=== PATIENT | female | born 1985 | race Caucasian/White ===

== ENCOUNTER 2020-01-09 20:10 | Emergency (ER) | payer MEDICARE, MEDICAID, SELFPAY ==
[2020-01-09 20:20] VITALS: TEMP 38.8
[2020-01-09 20:26] VITALS: BP 188/116; PULSE 112; RESP 20; O2SAT 97
--- NOTE | 2020-01-09 20:27 | ED.FEVER ---
HPI - Fever General Chief Complaint: Fever Stated Complaint: fever, shivers, sore throat, headache Time Seen by Provider: 01/09/20 20:14 Source: patient Mode of arrival: ambulatory Limitations: no limitations History of Present Illness HPI Narrative: 34-year-old woman history hypertension comes in today complaining of fever, sore throat, headache and chills that have been present for the last 2 days. Patient states that she has no cough, shortness breath, vomiting, diarrhea or abdominal pain. She denies any sick exposures. Patient states he has a history hypertension but has not been able to get to her doctor's office to refill her medication lately. MD elicited complaint: fever Onset (ago): day(s) Exacerbating factors: nothing Relieving factors: nothing Associated symptoms: chills, headache and sore throat Treatments prior to arrival fever: none Related Data Allergies Allergy/AdvReac Type Severity Reaction Status Date / Time No Known Allergies Allergy Unverified 10/21/13 17:48 Review of Systems Constitutional: Constitutional: Reports chills and Reports fever(s) Eyes: Eyes: Denies change in vision and Denies photophobia ENT: Denies dysphagia, Denies nasal congestion and Denies sore throat Cardiovascular: Cardiovascular: Reports chest pain and Reports radiating jaw, neck or arm pain Respiratory: Respiratory: Denies cough, Denies dyspnea and Denies wheezing Gastrointestinal: Gastrointestinal: Denies abdominal pain, Denies diarrhea, Denies nausea and Denies vomiting Integumentary/Breasts: Skin/Breast: Denies pruritus, Denies erythema and Denies rash Neurologic: Denies vertigo, Denies dizziness, Denies syncope and Denies focal weakness Hematologic/Lymphatic: Hematologic/Lymphatic: Denies easy bleeding and Denies easy bruising Allergic/Immunologic: Allergic/Immunologic: Denies lip swelling and Denies wheezing PMFSH Past Medical History Medical History Hypertension Surgical History Surgical History History of Social History Social History Smoking status: Former smoker Alcohol intake: current Substance use: never Living arrangements: with family Gender identity (if verbalized by the patient): Female Exam Const: General: healthy appearing, no acute distress and alert Orientation/consciousness: patient oriented x3 Limitations: no limitations HENMT: Head: normal to inspection Ears: external ears normal, TM's normal bilaterally and EAC's normal Other: Bilateral tonsillar hypertrophy 3+ with white exudate. Eyes: Conjunctivae: conjunctivae normal Pupils: Equal, round and reactive pupils present EOM: EOMs intact bilaterally Neck: Neck: normal visual inspection and no lymphadenopathy Resp: Effort & Inspection: normal respiratory effort and not labored Auscultation: clear to auscultation bilaterally, no rales, no rhonchi and no wheezes Cardio: Rate: regular rate Rhythm: regular rhythm Heart sounds: no murmurs Peripheral pulses: Peripheral pulses 2+ throughout Skin: General skin exam: normal color, no jaundice and no pallor Rashes: no rashes Neuro: General: patient oriented x3, moves all extremities, no focal motor deficits and CN's II-XI intact bilaterally Cranial nerves: Yes Nystagmus not present Speech: normal speech Gait exam (Neuro): Normal gait present Extrem: General: normal to inspection and no clubbing, cyanosis or edema Psych: Appearance: grossly normal and well kempt Mental Status: mental status grossly normal Affect: normal affect Attitude: cooperative Thought content: Yes Normal thought content present Course Vital Signs Vital signs: Vital Signs Temperature 38.8 C H 01/09/20 20:20 Temperature 38.8 C H 01/09/20 20:20 Pulse Rate 112 H 01/09/20 20:26 Respiratory Rate 20 01/09/20 20:
--- NOTE | 2020-01-09 20:33 | ECG_ITS ---
Measurements Intervals [place] Rate: 110 P: 62 [place]: 134 QRS: 94 QRSD: 98 T: 16 QT: 309 QTc: 419 Interpretive Statements SINUS TACHYCARDIA RIGHT AXIS DEVIATION BASELINE ARTIFACT- I, II, III, AVF, V3-V6 ABNORMAL ECG Electronically Signed On 01-10-2020 6:56:27 CDT by Mahad Russell D.O.
[2020-01-09 20:50] LABS: Basophils Absolute Auto 0.05 K/mm3 (0.00-0.10); Basophils Percent Auto 0.4 % (0.0-1.0); Eosinophils Absolute Auto 0.07 K/mm3 (0.02-0.50); Eosinophils Percent Auto 0.5 % (1.0-6.0); Hematocrit 38.2 % (35.0-49.0); Hemoglobin 12.7 g/dL (12.0-15.0); Immature Granulocyte Absolute 0.07 K/mm3 (0.00-0.00); Immature Granulocyte Percent A 0.5 % (0.0-0.0); Lymphocytes Absolute Auto 1.28 K/mm3 (1.10-4.50); Lymphocytes Percent Auto 9.1 % (18.0-42.0); Mean Corpuscular HGB Conc 33.2 g/dL (32.0-36.0); Mean Corpuscular Hemoglobin 32.6 pg (27.0-31.0); Mean Corpuscular Volume 97.9 fL (78.0-102.0); Monocytes Absolute Auto 0.69 K/mm3 (0.10-0.90); Monocytes Percent Auto 4.9 % (2.0-11.0); Neutrophils Absolute Auto 11.9 K/mm3 (1.7-7.2); Neutrophils Percent Auto 84.6 % (50.0-70.0); Platelet Count Result 240 K/mm3 (150-420); Red Cell Distribution Width 12.7 % (11.6-14.4); White Blood Count 14.1 K/mm3 (4.8-10.8)
[2020-01-09 21:08] LABS: Alanine Aminotransferase 28 U/L (14-59); Albumin Level 3.3 g/dL (3.4-5.0); Alkaline Phosphatase 69 U/L (46-116); Anion Gap 14.2 mmol/L (7-16); Aspartate Amino Transferase 28 U/L (15-37); Bilirubin,Total 0.3 mg/dL (0.00-1.00); Blood Urea Nitrogen 7 mg/dL (7-18); Calcium 8.8 mg/dL (8.5-10.1); Carbon Dioxide 25 mmol/L (21-32); Chloride 100 mmol/L (98-108); Estimated Glomerular Filt Rate > 60; Glucose 125 mg/dL (70-99); Osmolality Calculated 281 mOsm/kg (285-295); Potassium 3.2 mmol/L (3.5-5.1); Sodium 136 mmol/L (136-145); Total Protein 7.5 g/dL (6.4-8.2); Troponin I < 0.02 ng/mL (0.00-0.056)
[2020-01-09 21:14] VITALS: BP 150/92; PULSE 100; RESP 18; O2SAT 100
[2020-01-09] MEDS: IBUPROFEN 600 MG TABLET PO (21:29)
[2020-01-09] MEDS: AMOXICILLIN 500 MG CAPSULE 1000 MG PO (21:34)
[2020-01-09 21:37] VITALS: BP 149/92; PULSE 99; RESP 18; O2SAT 100
== END 2020-01-09 21:45 | disposition home or self-care (01) ==
PROVIDERS: Emergency Provider Emergency Medicine
DX: J02.0 Streptococcal pharyngitis (principal); I10 Essential (primary) hypertension
CPT/HCPCS: 80053; 84484; 85025; 87880; 93005; 99283; 99284; A9270

== ENCOUNTER 2020-01-31 17:20 | Outpatient (CLI) | payer MEDICARE, MEDICAID, SELFPAY ==
[2020-01-31 17:38] LABS: Basophils Absolute Auto 0.05 K/mm3 (0.00-0.10); Basophils Percent Auto 0.5 % (0.0-1.0); Eosinophils Absolute Auto 0.12 K/mm3 (0.02-0.50); Eosinophils Percent Auto 1.3 % (1.0-6.0); Hematocrit 38.9 % (35.0-49.0); Hemoglobin 12.8 g/dL (12.0-15.0); Immature Granulocyte Absolute 0.03 K/mm3 (0.00-0.00); Immature Granulocyte Percent A 0.3 % (0.0-0.0); Lymphocytes Percent Auto 22.4 % (18.0-42.0); Mean Corpuscular HGB Conc 32.9 g/dL (32.0-36.0); Mean Corpuscular Hemoglobin 32.7 pg (27.0-31.0); Mean Corpuscular Volume 99.5 fL (78.0-102.0); Mean Platelet Volume 10.4 fl (9.2-11.8); Monocytes Absolute Auto 0.56 K/mm3 (0.10-0.90); Neutrophils Absolute Auto 6.5 K/mm3 (1.7-7.2); Neutrophils Percent Auto 69.5 % (50.0-70.0); Platelet Count Result 306 K/mm3 (150-420); Red Blood Count 3.91 M/mm3 (4.20-5.40); White Blood Count 9.4 K/mm3 (4.8-10.8)
[2020-01-31 18:02] LABS: Alanine Aminotransferase 34 U/L (14-59); Albumin Level 3.6 g/dL (3.4-5.0); Alkaline Phosphatase 61 U/L (46-116); Anion Gap 8 mmol/L (8-16); Aspartate Amino Transferase 35 U/L (15-37); Bilirubin,Total 0.3 mg/dL (0.00-1.00); Blood Urea Nitrogen 11 mg/dL (7-18); Calcium 8.9 mg/dL (8.5-10.1); Carbon Dioxide 27 mmol/L (21-32); Chloride 101 mmol/L (98-108); Cholesterol 204 mg/dL (0-200); Estimated Glomerular Filt Rate > 60; Glucose 99 mg/dL (70-99); HDL Direct 56 mg/dL (40-60); LDL Cholesterol Calculated 78 mg/dL (<130); Osmolality Calculated 281 mOsm/kg (285-295); Potassium 4.2 mmol/L (3.5-5.1); Sodium 136 mmol/L (136-145); Thyroid Stimulating Hormone 1.85 uIU/mL (0.36-3.74); Total Protein 7.5 g/dL (6.4-8.2); Triglycerides 352 mg/dL (0-150)
[2020-02-04 07:42] LABS: FSH 1.1 mIU/mL (***); LH 1.5 mIU/mL (***)
[2020-02-07 09:49] LABS: Testosterone Free 3.2 pg/mL (0.1-6.4); Testosterone Total 36 ng/dL (2-45)
[2020-02-07 22:06] LABS: Estradiol, Ultrasensitive 222 pg/mL
== END 2020-01-31 17:21 | disposition home or self-care (01) ==
PROVIDERS: PCP Nurse Practitioner Family; Visit Provider Nurse Practitioner Family
DX: R68.82 Decreased libido (principal); Z12.4 Encounter for screening for malignant neoplasm of cervix; I10 Essential (primary) hypertension; Z13.89 Encounter for screening for other disorder
CPT/HCPCS: 36415; 80053; 80061; 82670; 83001; 83002; 84402; 84403; 84443; 85025; 87491; 87591; 87624; 88175; G0145

== ENCOUNTER 2020-10-04 18:40 | Emergency (ER) | payer MEDICARE, SELFPAY ==
[2020-10-04 18:50] VITALS: BP 143/88; PULSE 103; RESP 18; TEMP 36.4; O2SAT 99
--- NOTE | 2020-10-04 18:56 | ED.FEMALEGU ---
HPI - Female Genitourinary General Chief complaint: Urogenital-Female Stated complaint: trouble with urination Time Seen by Provider: 10/04/20 18:56 Source: patient Mode of arrival: ambulatory Limitations: no limitations History of Present Illness HPI Narrative: 35-year-old woman comes in today complaining of 3 days of bladder pressure, urinary urgency and urinary frequency. She states this started the same day that she started her period. She denies fever, nausea, vomiting, vaginal discharge, or hematuria. She states she has occasional back pain. MD elicited complaint: UTI Onset (ago): day(s) (3) Location of symptoms: suprapubic Severity: moderate Female Urogenital Radiation: Non-Radiating Quality of pain: other ( Pressure) Consistency: constant Vaginal discharge: none Vaginal bleeding: moderate ( typical) Urinary symptoms: Urgency and Frequency Exacerbating factors: none Relieving factors: none Treatment prior to arrival: none Possible : unsure if Related Data Allergies Allergy/AdvReac Type Severity Reaction Status Date / Time No Known Allergies Allergy Unverified 05/30/20 15:26 Review of Systems Constitutional: Constitutional: Denies chills Comments: no fever Eyes: Eyes: Denies change in vision and Denies photophobia ENT: Denies nasal congestion and Denies sore throat Cardiovascular: Cardiovascular: Denies chest pain and Denies radiating jaw, neck or arm pain Respiratory: Respiratory: Denies cough and Denies dyspnea Gastrointestinal: Gastrointestinal: Reports abdominal pain ( suprapubic pressure), Denies nausea and Denies vomiting Genitourinary: Genitourinary: Reports as per HPI, Denies hematuria, Reports nocturia and Denies urinary incontinence Musculoskeletal: Musculoskeletal: Denies back pain, Denies arthralgias and Denies joint swelling Integumentary/Breasts: Skin/Breast: Denies pruritus, Denies erythema and Denies rash Neurologic: Denies vertigo, Denies dizziness and Denies syncope Hematologic/Lymphatic: Hematologic/Lymphatic: Denies easy bleeding and Denies easy bruising Allergic/Immunologic: Allergic/Immunologic: Denies lip swelling and Denies throat swelling PMFSH Past Medical History Medical History BMI 32.0-32.9,adult Depression Dyslipidemia Hypertension Surgical History Surgical History History of Social History Social History Smoking status: Never smoker Alcohol intake: current Substance use: never Gender identity (if verbalized by the patient): Female Exam Const: General: healthy appearing, no acute distress and alert Orientation/consciousness: patient oriented x3 Limitations: no limitations HENMT: Face and sinus: normal facial exam Mouth: Yes moist mucous membranes Throat: posterior oropharynx normal Eyes: Conjunctivae: conjunctivae normal Pupils: Equal, round and reactive pupils present EOM: EOMs intact bilaterally Resp: Effort & Inspection: normal respiratory effort and not labored Auscultation: clear to auscultation bilaterally, no rales, no rhonchi and no wheezes Cardio: Rate: regular rate Rhythm: regular rhythm Heart sounds: no murmurs GI: GI Palp: Yes Soft to palpation, No Tenderness to palpation present (GI), No Guarding due to palpation present (GI) and No Palpable mass present Skin: General skin exam: normal color, no jaundice and no pallor Rashes: no rashes Neuro: General: patient oriented x3, moves all extremities, no focal motor deficits and CN's II-XI intact bilaterally Speech: normal speech Gait exam (Neuro): Normal gait present Extrem: General: normal to inspection and no clubbing, cyanosis or edema Psych: Mental Status: mental status grossly normal Affect: normal affect Attitude: cooperative Thought content: Yes Normal thought content pr
[2020-10-04 19:02] LABS: Add Urine Microscopic? YES; Appearance Urine Clear (Clear); Bilirubin Urine Negative (Negative); Blood Urine 3+ (Negative); Color Urine Yellow (Yellow); Glucose Urine UA Negative (Negative); Ketones Urine Trace (Negative); Leukocyte Esterase Ur 1+ (Negative); Nitrate Urine Positive (Negative); Protein Urine 2+ (Negative); Specific Grav Ur >= 1.030 (1.010-1.020); Urobilinogen Urine 0.2 mg/dL (0.2-1.0); pH Urine 6.5 (5.0-8.0)
[2020-10-04 19:05] LABS: WBC Urine 16-20 /hpf (0-3)
[2020-10-04 19:06] LABS: Bacteria Urine 2+ /hpf; Squamous Epithelial Cell Urine Few /hpf (Few)
[2020-10-04 19:07] LABS: Pregnancy On Board Control Positive; Urine Pregnancy Test Negative
[2020-10-04] MEDS: NITROFURANTOIN MONOHYD MACROCR 100 MG CAP PO (19:14)
[2020-10-04 19:16] VITALS: BP 132/77; PULSE 95; RESP 16; O2SAT 99
== END 2020-10-04 19:17 | disposition home or self-care (01) ==
PROVIDERS: Emergency Provider Emergency Medicine; PCP Nurse Practitioner Family
DX: N30.00 Acute cystitis without hematuria (principal)
CPT/HCPCS: 81001; 81025; 87077; 87086; 87088; 87186; 99282; 99283; A9270

== ENCOUNTER 2020-12-25 16:21 | Outpatient (CLI) | payer MEDICARE, SELFPAY ==
[2020-12-25 16:34] LABS: Basophils Absolute Auto 0.07 K/mm3 (0.00-0.10); Basophils Percent Auto 0.9 % (0.0-1.0); Eosinophils Absolute Auto 0.11 K/mm3 (0.02-0.50); Eosinophils Percent Auto 1.5 % (1.0-6.0); Hemoglobin 12.6 g/dL (12.0-15.0); Immature Granulocyte Absolute 0.02 K/mm3 (0.00-0.00); Immature Granulocyte Percent A 0.3 % (0.0-0.0); Lymphocytes Absolute Auto 2.29 K/mm3 (1.10-4.50); Lymphocytes Percent Auto 31.1 % (18.0-42.0); Mean Corpuscular HGB Conc 34.1 g/dL (32.0-36.0); Mean Corpuscular Hemoglobin 33.2 pg (27.0-31.0); Mean Corpuscular Volume 97.6 fL (78.0-102.0); Mean Platelet Volume 10.8 fl (9.2-11.8); Monocytes Percent Auto 5.4 % (2.0-11.0); Neutrophils Absolute Auto 4.5 K/mm3 (1.7-7.2); Neutrophils Percent Auto 60.8 % (50.0-70.0); Platelet Count Result 273 K/mm3 (150-420); Red Blood Count 3.79 M/mm3 (4.20-5.40); Red Cell Distribution Width 12.7 % (11.6-14.4); White Blood Count 7.4 K/mm3 (4.8-10.8)
[2020-12-25 17:30] LABS: Alanine Aminotransferase 24 U/L (14-59); Albumin Level 4.3 g/dL (3.4-5.0); Alkaline Phosphatase 64 U/L (46-116); Anion Gap 13 mmol/L (8-16); Aspartate Amino Transferase 16 U/L (15-37); Bilirubin,Total 0.4 mg/dL (0.00-1.00); Blood Urea Nitrogen 9 mg/dL (7-18); Calcium 9.3 mg/dL (8.5-10.1); Carbon Dioxide 24 mmol/L (21-32); Chloride 104 mmol/L (98-108); Estimated Glomerular Filt Rate > 60; Ferritin 57 ng/mL (8-252); Glucose 86 mg/dL (70-99); Iron 123 ug/dL (50-170); Magnesium 2.1 mg/dL (1.8-2.4); Osmolality Calculated 289 mOsm/kg (285-295); Percent Iron Saturation 33 % (12-57); Potassium 4.3 mmol/L (3.5-5.1); Sodium 141 mmol/L (136-145); Total Protein 7.9 g/dL (6.4-8.2)
[2020-12-25 17:53] LABS: Cholesterol 129 mg/dL (0-200); HDL Direct 94 mg/dL (40-60); LDL Cholesterol Calculated 20 mg/dL (<130); Triglycerides 74 mg/dL (0-150)
== END 2020-12-25 16:22 | disposition home or self-care (01) ==
LOC: CHSLAB 16:23
PROVIDERS: PCP Nurse Practitioner Family; Visit Provider Family Medicine
DX: E78.5 Hyperlipidemia, unspecified (principal); I10 Essential (primary) hypertension; M79.10 Myalgia, unspecified site; R71.8 Other abnormality of red blood cells
CPT/HCPCS: 36415; 80053; 80061; 82728; 83540; 83550; 83735; 85025

== ENCOUNTER 2021-07-24 16:10 | Outpatient (NON) | payer OTHER, SELFPAY | END 2021-07-24 16:11 | disposition home or self-care (01) | LOC: CHSLAB 16:13 | PROVIDERS: Visit Provider Nurse Practitioner Family | DX: Z12.4 Encounter for screening for malignant neoplasm of cervix (principal); Z13.89 Encounter for screening for other disorder | CPT/HCPCS: 87491; 87591; 87624; 88175; G0145 ==

== ENCOUNTER 2022-08-12 10:06 | Emergency (ER) | payer OTHER, SELFPAY ==
[2022-08-12 10:15] VITALS: BP 153/90; PULSE 77; RESP 16; TEMP 36.6; O2SAT 96
--- NOTE | 2022-08-12 10:22 | ED.DENTAL ---
HPI - Dental/Oral General Chief complaint: Dental/Oral Stated complaint: tooth pain started 4 days ago Time Seen by Provider: 08/12/22 10:16 History of Present Illness HPI Narrative: Pt presents with lower front left toothache for a few days. Pt denies fever. Pt has dental appointment next week. Pt denies fever or drainage. Related Data Allergies Allergy/AdvReac Type Severity Reaction Status Date / Time No Known Allergies Allergy Verified 08/12/22 10:30 Review of Systems Review of Systems: All systems reviewed & are unremarkable except as noted in HPI and below PMFSH Past Medical History Medical History BMI 32.0-32.9,adult Depression Dyslipidemia Hypertension Left knee pain Reduced libido Surgical History Surgical History History of Social History Social History Smoking status: Former smoker Alcohol intake: current Substance use: never Lack of Transportation: No Lack of Food: Never True Current Housing: I Have Housing Concerned About Future Housing: No Difficulty Paying Gas/Electric Bills: YES Difficulty Paying for Meds: No Currently Unemployed: No Education: Grade School Difficulty w/ Childcare or Family Care: No Living arrangements: with family Gender identity (if verbalized by the patient): Female Exam Const: General: healthy appearing Nutritional Appearance: well nourished Orientation/consciousness: patient oriented x3 Limitations: no limitations HENMT: Teeth and gingiva: abnormal tooth and associated gingiva (tender to palpation tooth #23 no definite abscess) Throat: posterior oropharynx normal Skin: General skin exam: normal color Rashes: no rashes Wounds: no wounds Neuro: General: patient oriented x3, moves all extremities, no meningeal signs and no focal motor deficits Speech: normal speech Extrem: General: normal to inspection and no clubbing, cyanosis or edema Psych: Mental Status: mental status grossly normal Affect: normal affect Attitude: cooperative Course Vital Signs Vital signs: Vital Signs Temperature 97.9 F 08/12/22 10:15 Pulse Rate 77 08/12/22 10:15 Respiratory Rate 16 08/12/22 10:15 Blood Pressure 153/90 H 08/12/22 10:15 Pulse Oximetry 96 08/12/22 10:15 Oxygen Delivery Room Air 08/12/22 10:15 Temperature 97.9 F 08/12/22 10:15 Pulse Rate 77 08/12/22 10:15 Respiratory Rate 16 08/12/22 10:15 Blood Pressure 153/90 H 08/12/22 10:15 Pulse Oximetry 96 08/12/22 10:15 Oxygen Delivery Room Air 08/12/22 10:15 Discharge Plan Discharge Clinical Impression: Pain, dental Patient Disposition: Home, Self-Care Condition: Stable Instructions: Antibiotic Form, Toothache (ED) Prescriptions: New penicillin V potassium 500 mg tablet 500 mg PO QID Qty: 40 0RF No Action atorvastatin 20 mg tablet See Rx Instructions .ROUTE .COMPLEX Qty: 90 3RF Dose Instruction: TAKE ONE TABLET BY MOUTH DAILY Rx Instructions: TAKE ONE TABLET BY MOUTH DAILY cyclobenzaprine 10 mg tablet 10 mg PO .HS PRN (Reason: muscle spasm) Qty: 20 0RF propranolol 20 mg tablet See Rx Instructions .ROUTE .COMPLEX Qty: 60 2RF Dose Instruction: TAKE ONE TABLET BY MOUTH EVERY TWELVE HOURS Rx Instructions: TAKE ONE TABLET BY MOUTH EVERY TWELVE HOURS lisinopril 20 mg tablet See Rx Instructions .ROUTE .COMPLEX Qty: 90 0RF Dose Instruction: TAKE ONE TABLET BY MOUTH DAILY Rx Instructions: TAKE ONE TABLET BY MOUTH DAILY bupropion HCl 150 mg tablet extended release 24 hr See Rx Instructions .ROUTE .COMPLEX Qty: 90 1RF Dose Instruction: TAKE THREE TABLETS BY MOUTH DAILY Rx Instructions: TAKE THREE TABLETS BY MOUTH DAILY Follow-up/Referrals: Kathy Streeter NP [P
== END 2022-08-12 10:43 | disposition home or self-care (01) ==
LOC: CHSED 10:32
PROVIDERS: Emergency Provider Emergency Medicine; PCP Nurse Practitioner Family
DX: K08.89 Other specified disorders of teeth and supporting structures (principal); I10 Essential (primary) hypertension; E78.5 Hyperlipidemia, unspecified; Z87.891 Personal history of nicotine dependence
CPT/HCPCS: 99283

== ENCOUNTER 2022-11-06 15:32 | Emergency (ER) | payer OTHER, SELFPAY ==
--- NOTE | ~2022-11-06 | XR_ITS ---
EXAMINATION: XR chest 2V DATE: 11/06/2022 16:31 INDICATION: Cough. Congestion. Left-sided chest pain. TECHNIQUE: Frontal and lateral views of the chest were obtained. COMPARISON: None. FINDINGS: There are airspace opacities in lingula and anterior segment left upper lobe. No pleural ef fusion or pneumothorax. The heart size is normal. IMPRESSION: 1. Airspace opacities in lingula and anterior segment left upper lobe, consistent with pneumonia. Reviewed, dictated and finalized at location E. IMPRESSION: 1. Airspace opacities in lingula and anterior segment left upper lobe, consiste nt with pneumonia.
[2022-11-06 15:33] VITALS: BP 120/87; PULSE 78; RESP 20; TEMP 36.2; O2SAT 98
--- NOTE | 2022-11-06 15:58 | ED.GENADULT ---
HPI - General Adult General Chief complaint: Upper Respiratory Infection Stated complaint: upper respiratory; nasal congestion, coughing Time Seen by Provider: 11/06/22 15:36 History of Present Illness HPI narrative: The patient is a 37-year-old woman with history of hypertension depression hyperlipidemia. She is a nonsmoker. Prior section. She does leak alcohol most days but has not been drinking for the last week since she developed upper respiratory tract infection symptoms since at least 10/31/2022. He saw her primary care provider 11/02/2022 and was given diclofenac, benzonatate, and fluticasone nasal spray for URI symptoms. No antibiotics or steroids were indicated. Patient continues to have symptoms of an upper respiratory infection: Nasal congestion, rhinorrhea, cough productive of mucus, myalgias especially in the left arm, sleeping quite a bit, feeling tired and weak, mild diarrheal stools, loose, twice yesterday and once today. Did have a fever as high as 103? and chills and sweats. Occasional headache. Lost the sense of taste and smell since yesterday. No sore throat. No abdominal pain. Mild left-sided chest pain, worse with coughing. No dyspnea. No UTI symptoms such as urgency or dysuria or frequency. Related Data Allergies Allergy/AdvReac Type Severity Reaction Status Date / Time No Known Allergies Allergy Verified 11/02/22 15:21 Review of Systems Review of Systems: All systems reviewed & are unremarkable except as noted in HPI and below Constitutional: Constitutional: Reports as per HPI, Reports chills, Reports excessive sweating, Reports fatigue, Reports fever(s), Reports headache(s) and Reports weakness Eyes: Eyes: Denies change in vision and Denies photophobia ENT: Denies dysphagia, Denies dizziness, Reports headache(s), Denies lip swelling, Reports nasal congestion, Denies sore throat and Denies tongue swelling Cardiovascular: Cardiovascular: Denies chest pain, Denies syncope, Denies rapid heart rate and Denies dyspnea Respiratory: Respiratory: Reports cough, Denies dyspnea and Denies wheezing Gastrointestinal: Gastrointestinal: Denies abdominal pain, Denies constipation, Denies dysphagia, Denies diarrhea, Denies nausea and Denies vomiting Genitourinary: Genitourinary: Denies hematuria, Denies urinary frequency, Denies dysuria and Denies urinary urgency Musculoskeletal: Musculoskeletal: Denies back pain, Reports myalgias, Denies arthralgias, Denies joint swelling and Denies numbness Integumentary/Breasts: Skin/Breast: Denies pruritus, Denies erythema and Denies rash Neurologic: Denies confusion, Denies dizziness, Denies syncope, Reports headache(s), Denies focal weakness, Denies numbness and Denies weakness Psychiatric: Psychiatric: Denies anxiety and Denies confusion Endocrine: Endocrine: Denies excessive sweating and Denies fatigue Hematologic/Lymphatic: Hematologic/Lymphatic: Denies easy bleeding and Denies easy bruising Allergic/Immunologic: Allergic/Immunologic: Denies lip swelling, Denies tongue swelling and Denies wheezing PMFSH Past Medical History Medical History BMI 32.0-32.9,adult Depression Dyslipidemia Hypertension Left knee pain Reduced libido Surgical History Surgical History History of Social History Social History Smoking status: Former smoker Alcohol intake: current Substance use: never Lack of Transportation: No Lack of Food: Never True Current Housing: I Have Housing Concerned About Future Housing: No Difficulty Paying Gas/Electric Bills: YES Difficulty Paying for Meds: No Currently Unemployed: No Education: Grade School Difficulty w/ Childcare or Family Care: No Living arrangements: with family Gender identity (if verbalized by the patient): Female E
[2022-11-06 16:16] LABS: Influenza A QL RT-PCR Negative (Negative); Influenza B QL RT-PCR Negative (Negative); SARS-CoV-2 RNA PCR Negative (Negative)
[2022-11-06 16:17] LABS: RSV RNA, RT-PCR Negative (Negative); Strep Group A RT-PCR NOT DETECTED (Negative)
[2022-11-06] MEDS: BENZONATATE 100 MG CAPSULE PO (17:13)
[2022-11-06 17:14] LABS: Hematocrit 37.3 % (35.0-49.0); Mean Corpuscular HGB Conc 32.2 g/dL (32.0-36.0); Mean Corpuscular Volume 102.5 fL (78.0-102.0); Mean Platelet Volume 10.5 fl (9.2-11.8); Platelet Count Result 263 K/mm3 (150-420); Red Blood Count 3.64 M/mm3 (4.20-5.40); Red Cell Distribution Width 12.2 % (11.6-14.4); White Blood Count 15.4 K/mm3 (4.8-10.8)
[2022-11-06] MEDS: KETOROLAC 30 MG/ML VIAL (*BKC) IV PUSH (17:15)
[2022-11-06] MEDS: cefTRIAXone 2 GM/NS 100 ML 2 GM/100 ML BAG IVPB (17:17)
[2022-11-06 17:27] LABS: Alanine Aminotransferase 56 U/L (14-59); Albumin Level 2.7 g/dL (3.4-5.0); Alkaline Phosphatase 96 U/L (46-116); Anion Gap 10 mmol/L (8-16); Aspartate Amino Transferase 40 U/L (15-37); Bilirubin,Total 0.6 mg/dL (0.00-1.00); Blood Urea Nitrogen 9 mg/dL (7-18); Calcium 8.9 mg/dL (8.5-10.1); Carbon Dioxide 26 mmol/L (21-32); Chloride 100 mmol/L (98-108); Estimated CRCL calculation 71 ml/min; Estimated Glomerular Filt Rate > 60; Glucose 98 mg/dL (70-99); Osmolality Calculated 280 mOsm/kg (285-295); Potassium 3.5 mmol/L (3.5-5.1); Sodium 136 mmol/L (136-145); Total Protein 7.6 g/dL (6.4-8.2)
[2022-11-06 17:32] LABS: Lactic Acid Reflex 0.6 mmol/L (0.4-2.0)
[2022-11-06 17:36] LABS: Band Neutrophils Percent 4 % (0-6); Basophils Percent Manual 0 % (0-1); Eosinophils Absolute Manual 0.15 K/mm3 (0.02-0.5); Eosinophils Percent Manual 1 % (1-6); Lymphocytes Absolute Manual 1.54 K/mm3 (1.1-4.5); Lymphocytes Percent Manual 10 % (18-44); Monocytes Absolute Manual 0.46 K/mm3 (0.1-0.90); Monocytes Percent Manual 3 % (3-9); Neutrophils Absolute Manual 13.24 K/mm3 (1.7-7.2); Neutrophils Percent Manual 82 % (46-73); Platelet Estimate Adequate (Adequate); Total Cells Counted 100
[2022-11-06] MEDS: AZITHROMYCIN 500 MG/NS 250 ML 500 MG/250 ML BAG 250 MG IVPB (17:46)
--- NOTE | 2022-11-06 17:54 | ECG_ITS ---
Measurements Intervals [place] Rate: 82 P: 28 [place]: 160 QRS: 80 QRSD: 87 T: 42 QT: 338 QTc: 395 Interpretive Statements SINUS RHYTHM BASELINE ARTIFACT- II, III, AVR, AVL, AVF NORMAL ECG COMPARED TO ECG 01/09/2020 20:42:19 SINUS RHYTHM NOW PRESENT Electronically Signed On 11-07-2022 8:22:08 CDT by Mahad Russell D.O.
[2022-11-06 18:11] LABS: Troponin I < 4.0 ng/L (0.00-60.4)
[2022-11-06 18:19] VITALS: BP 98/56; PULSE 82; RESP 20; O2SAT 95
[2022-11-06 18:49] VITALS: BP 114/80; PULSE 83; RESP 20; TEMP 36.8; O2SAT 100
--- NOTE | 2022-11-12 12:30 | PC.NURSE ---
final blood culture reports x2 reviewed. no growth after 5 days . no change in plan of care.
== END 2022-11-06 19:01 | disposition home or self-care (01) ==
PROVIDERS: Emergency Provider Emergency Medicine; PCP Nurse Practitioner Family
DX: J18.9 Pneumonia, unspecified organism (principal); J06.9 Acute upper respiratory infection, unspecified; I10 Essential (primary) hypertension; E78.5 Hyperlipidemia, unspecified; F32.A Depression, unspecified; Z87.891 Personal history of nicotine dependence; Z20.822 Contact with and (suspected) exposure to COVID-19
CPT/HCPCS: 36415; 71046; 80053; 83605; 84484; 85025; 87040; 87637; 87651; 93005; 96365; 96367; 96375; 99284; A9270; J0456; J0696; J1885

== ENCOUNTER 2023-09-27 14:25 | Outpatient (NON) | payer OTHER, SELFPAY ==
[2023-09-27 14:37] LABS: Appearance Urine Clear (Clear); Bilirubin Urine Negative (Negative); Blood Urine 2+ (Negative); Color Urine Light Yellow (Yellow); Glucose Urine UA Negative (Negative); Ketones Urine Negative (Negative); Leukocyte Esterase Ur Negative LEU/UL (Negative); Nitrate Urine Negative (Negative); Protein Urine Negative (Negative); Specific Grav Ur <= 1.005 (1.010-1.020); Urobilinogen Urine 0.2 mg/dL (0.2-1.0); pH Urine 5.5 (5.0-8.0)
[2023-09-27 14:56] LABS: Add Urine Microscopic? YES
[2023-09-27 14:57] LABS: Bacteria Urine Trace /hpf; Squamous Epithelial Cell Urine Rare /hpf (Few); WBC Urine None seen /hpf (0-3)
== END 2023-09-27 14:26 | disposition home or self-care (01) ==
LOC: CHSLAB 14:26
PROVIDERS: Visit Provider Nurse Practitioner Family
DX: R35.89 Other polyuria (principal); R35.0 Frequency of micturition; N39.44 Nocturnal enuresis
CPT/HCPCS: 81001

== ENCOUNTER 2023-11-03 12:21 | Outpatient (NON) | payer OTHER, SELFPAY ==
[2023-11-03 12:53] LABS: Appearance Urine Clear (Clear); Bilirubin Urine Negative (Negative); Blood Urine Negative (Negative); Color Urine Light Yellow (Yellow); Glucose Urine UA Negative (Negative); Ketones Urine Negative (Negative); Leukocyte Esterase Ur Trace LEU/UL (Negative); Nitrate Urine Negative (Negative); Protein Urine Negative (Negative); Urobilinogen Urine 0.2 mg/dL (0.2-1.0)
[2023-11-03 13:11] LABS: Add Urine Microscopic? YES; RBC Urine None seen /hpf (0-2); WBC Urine 0-3 /hpf (0-3)
[2023-11-03 13:12] LABS: Bacteria Urine None seen /hpf; Mucus Urine Few /lpf; Renal Epithelial Cells Urine Rare /hpf; Squamous Epithelial Cell Urine Moderate /hpf (Few)
== END 2023-11-03 12:22 | disposition home or self-care (01) ==
PROVIDERS: Visit Provider Nurse Practitioner Family
DX: N89.8 Other specified noninflammatory disorders of vagina (principal)
CPT/HCPCS: 81001; 87070; 87147

== ENCOUNTER 2024-01-05 15:58 | Emergency (ER) | payer OTHER, SELFPAY ==
[2024-01-05] VITALS (21 sets, daily range): BP systolic 141–169; BP diastolic 86–115; PULSE 91–118; RESP 12–20; TEMP 36.4; O2SAT 93–100
--- NOTE | 2024-01-05 16:00 | ED.CHESTPAIN ---
HPI - Chest Pain General Chief Complaint: Chest Pain Stated Complaint: chest pain Source: patient Mode of arrival: ambulatory Limitations: no limitations History of Present Illness HPI narrative: 38-year-old female, ex-smoker, alcoholic( drinks about 10 beers daily), prediabetic with depression, dyslipidemia, hypertension presents to the ED with a 1 day history of -- intermittent anterior chest pain which radiates backwards. Pain is unprovoked. It is short lived with spontaneous resolution. No shortness of breath. No lightheadedness. -- The patient is very tremulous and shaky. She had her last drink yesterday. No fever or chills. MD complaint: chest pain Onset (ago): day(s) ( One day) Timing of current episode: episodic Prior episodes: No Onset: during rest Pain location: substernal Pain radiation: back Severity: moderate Pain scale (0-10): 6 Quality: aching Relieving factors: nothing Exacerbating factors: nothing Risk Factors Coronary artery disease risk factors: diabetes, smoking history, hyperlipidemia and hypertension Related Data On Oral Contraceptives: No Allergies Allergy/AdvReac Type Severity Reaction Status Date / Time No Known Allergies Allergy Verified 11/03/23 11:46 Review of Systems Review of Systems: All systems reviewed & are unremarkable except as noted in HPI and below Constitutional: Constitutional: Reports as per HPI and Reports no additional constitutional complaints Eyes: Eyes: Reports as per HPI and Reports no additional eye complaints ENT: Reports system reviewed and no additional complaints, except as documented and Reports as per HPI Cardiovascular: Cardiovascular: Reports as per HPI, Reports no additional cardiovascular complaints and Reports chest pain Respiratory: Respiratory: Reports as per HPI and Reports no additional respiratory complaints Gastrointestinal: Gastrointestinal: Reports as per HPI and Reports no additional gastrointestinal complaints Genitourinary: Genitourinary: Reports no additional female genitourinary complaints and Reports as per HPI Musculoskeletal: Musculoskeletal: Reports no additional musculoskeletal complaints and Reports as per HPI Integumentary/Breasts: Skin/Breast: Reports system reviewed and no additional complaints, except as docu and Reports as per HPI Neurologic: Reports system reviewed and no additional complaints, except as documented and Reports as per HPI Psychiatric: Psychiatric: Reports no additional psychiatric complaints, Reports as per HPI and Reports anxiety Comments: Patient is anxious and tremulous Endocrine: Endocrine: Reports no additional endocrine complaints and Reports as per HPI Hematologic/Lymphatic: Hematologic/Lymphatic: Reports no additional hematologic/lymphatic complaints and Reports as per HPI Allergic/Immunologic: Allergic/Immunologic: Reports no additional allergic/immunologic complaints and Reports as per HPI PMFSH Past Medical History Medical History BMI 32.0-32.9,adult Depression Dyslipidemia Hypertension Left knee pain Reduced libido Surgical History Surgical History History of Social History Social History Smoking status: Former smoker Alcohol intake: current Substance use: never Lack of Transportation: No Lack of Food: Never True Current Housing: I Have Housing Concerned About Future Housing: No Difficulty Paying Gas/Electric Bills: YES Difficulty Paying for Meds: No Currently Unemployed: No Education: Grade School Difficulty w/ Childcare or Family Care: No Living arrangements: with family Gender identity (if verbalized by the patient): Female Exam Const: General: healthy appearing and no acute distress Nutritional Appearance: well nourished Orientation/consciousness: patient kaykay
--- NOTE | 2024-01-05 16:07 | ECG_ITS ---
Test Date: 2024-01-05 16:18:29 Measurements Intervals [place] Rate: 97 P: 77 [place]: 143 QRS: 86 QRSD: 102 T: 58 QT: 339 QTc: 431 Interpretive Statements SINUS RHYTHM WITH SINUS ARRHYTHMIA DELAYED PRECORDIAL R/S TRANSITION BASELINE ARTIFACT- I, II, III, AVL BORDERLINE ECG No previous ECG available for comparison Electronically Signed On 01-05-2024 18:25:34 CDT by Mahad Russell D.O.
[2024-01-05 16:20] LABS: Basophils Absolute Auto 0.06 K/mm3 (0.00-0.10); Basophils Percent Auto 1.1 % (0.0-1.0); Eosinophils Absolute Auto 0.13 K/mm3 (0.02-0.50); Eosinophils Percent Auto 2.5 % (1.0-6.0); Hematocrit 37.2 % (35.0-49.0); Hemoglobin 12.1 g/dL (12.0-15.0); Immature Granulocyte Absolute 0.02 K/mm3 (0.00-0.00); Immature Granulocyte Percent A 0.4 % (0.0-0.0); Lymphocytes Absolute Auto 1.37 K/mm3 (1.10-4.50); Lymphocytes Percent Auto 26.1 % (18.0-42.0); Mean Corpuscular HGB Conc 32.5 g/dL (32-36); Mean Corpuscular Hemoglobin 32.7 pg (27.0-31.0); Mean Corpuscular Volume 100.5 fL (78.0-102.0); Mean Platelet Volume 9.7 fl (9.2-11.8); Monocytes Percent Auto 13.3 % (2.0-11.0); Neutrophils Absolute Auto 2.97 K/mm3 (1.70-7.20); Neutrophils Percent Auto 56.6 % (50.0-70.0); Platelet Count Result 207 K/mm3 (150-420); Red Cell Distribution Width 12.5 % (11.6-14.4); White Blood Count 5.3 K/mm3 (4.8-10.8)
[2024-01-05 16:32] LABS: INR 0.9; Partial Thromboplastin Time 24.2 Sec (23.9-30.70); Prothrombin Time 10.3 Seconds (9.50-12.1)
[2024-01-05] MEDS: diazePAM (*CRX) 5 MG TABLET 10 MG PO (16:33)
[2024-01-05 16:37] LABS: Alanine Aminotransferase 131 U/L (14-59); Albumin Level 3.3 g/dL (3.4-5.0); Alkaline Phosphatase 60 U/L (46-116); Anion Gap 10 mmol/L (4-12); Aspartate Amino Transferase 82 U/L (15-37); Bilirubin,Total 0.3 mg/dL (0.00-1.00); Blood Urea Nitrogen 8 mg/dL (7-18); Calcium 9.3 mg/dL (8.5-10.1); Carbon Dioxide 26 mmol/L (21-32); Chloride 98 mmol/L (98-108); Estimated CRCL calculation 72 ml/min; Estimated Glomerular Filt Rate > 60; Glucose 108 mg/dL (70-99); Lipase 43 U/L (16-77); Osmolality Calculated 277 mOsm/kg (285-295); Potassium 3.9 mmol/L (3.5-5.1); Sodium 134 mmol/L (136-145); Total Protein 7.3 g/dL (6.4-8.2)
[2024-01-05 16:38] LABS: Troponin I < 4.0 ng/L (0.00-60.4)
[2024-01-05] MEDS: THIAMINE HCL 200 MG/2 ML VIAL 100 MG IV PUSH (17:10)
[2024-01-05] MEDS: KETOROLAC 15 MG/ML VIAL (*BKC) IV PUSH (17:10)
[2024-01-05 17:15] LABS: Lactic Acid Reflex 1.1 mmol/L (0.4-2.0)
[2024-01-05 17:23] LABS: Appearance Urine Clear (Clear); Bilirubin Urine Negative (Negative); Blood Urine Negative (Negative); Color Urine Light Yellow (Yellow); Glucose Urine UA Negative (Negative); Ketones Urine Negative (Negative); Leukocyte Esterase Ur Negative LEU/UL (Negative); Nitrate Urine Negative (Negative); Protein Urine Negative (Negative); Specific Grav Ur <= 1.005 (1.010-1.020); Urobilinogen Urine 0.2 mg/dL (0.2-1.0)
[2024-01-05 17:30] LABS: Add Urine Microscopic? NO
[2024-01-05 17:33] LABS: Pregnancy On Board Control Positive; Urine Pregnancy Test Negative
[2024-01-05] MEDS: levoFLOXacin 750 MG/D5W 150 ML 750 MG/150 ML BAG 100 MG IVPB (17:33)
[2024-01-05 17:57] LABS: SARS-CoV-2 RNA PCR Negative (Negative)
[2024-01-05 18:00] LABS: Influenza A QL RT-PCR Negative (Negative); Influenza B QL RT-PCR Negative (Negative); RSV RNA, RT-PCR Negative (Negative)
[2024-01-10 11:12] LABS: Hemoglobin A1C 5.5 % (<5.7)
--- NOTE | 2024-01-11 13:19 | PC.NURSE ---
FINAL BLOOD CULTURE RESULTS X2: NO GROWTH AFTER 5 DAYS
== END 2024-01-05 18:48 | disposition home or self-care (01) ==
PROVIDERS: Emergency Provider Internal Medicine Critical Care Medicine; PCP Nurse Practitioner Family
DX: K75.9 Inflammatory liver disease, unspecified (principal); J18.9 Pneumonia, unspecified organism; E78.5 Hyperlipidemia, unspecified; I10 Essential (primary) hypertension; Z87.891 Personal history of nicotine dependence; Z20.822 Contact with and (suspected) exposure to COVID-19
CPT/HCPCS: 36415; 80053; 81003; 81025; 83036; 83605; 83690; 84484; 85025; 85610; 85730; 87040; 87637; 93005; 96365; 96375; 99284; A9270; J1885; J1956; J3411

== ENCOUNTER 2024-01-13 07:44 | Outpatient (CLI) | payer OTHER, SELFPAY ==
--- NOTE | ~2024-01-13 | US_ITS ---
Limited Abdominal Sonogram: Real-time sonographic imaging of the right upper quadrant was performed. Clinical History: Alcoholic hepatitis Findings: The liver appears echogenic, with no evidence of mass lesion or bile duct dilatation. Main portal vein demonstrates normal direction of flow. The gallbladder is partially distended, and appea rs normal with no evidence of gallstone or wall thickening. The common bile duct measures 3 mm. The visualized pancreas, aorta, and IVC are unremarkable. Impression: Diffuse fatty infiltration of the liver. Reviewed, dictated and finalized at location M. Impression: Diffuse fatty infiltration of the liver.
== END 2024-01-13 07:45 | disposition home or self-care (01) ==
PROVIDERS: PCP Nurse Practitioner Family; Visit Provider Nurse Practitioner Family
DX: K70.10 Alcoholic hepatitis without ascites (principal); K76.0 Fatty (change of) liver, not elsewhere classified
CPT/HCPCS: 76705

== ENCOUNTER 2024-03-31 16:04 | Emergency (ER) | payer OTHER, SELFPAY ==
[2024-03-31 16:04] VITALS: BP 205/111; PULSE 72; RESP 16; TEMP 36.6; O2SAT 98
--- NOTE | 2024-03-31 16:08 | ED.GENADULT ---
HPI - General Adult General Chief complaint: Unspecified Stated complaint: HTN Time Seen by Provider: 03/31/24 16:08 Source: patient Mode of arrival: ambulatory Limitations: no limitations History of Present Illness HPI narrative: 39 years old white female came to the ED complaining of elevated blood pressure over the last 3 days. Patient is telling me that she does not take her blood pressure medication or her anti depression medications regularly. Patient's boyfriend was checking his blood pressure 3 days ago, patient tried to do the same and found out that her blood pressure is high. Start taking her blood pressure medication regularly over the last 48 hours. Patient been checking her blood pressure almost every hour and the blood pressure is going higher and higher each time she checking. In the ED patient denies any fever, chills, nausea, vomiting, headache, chest pain, shortness of breath or back pain. Patient does not smoke cigarettes, drinks alcohol daily, does not use marijuana. Patient is disabled secondary to learning difficulty, is going to lose her apartment at the end of the month which causing too much stress. She denies any suicidal or homicidal ideation. Patient currently on lisinopril and propranolol Related Data Home Medications Medication Instructions Recorded Confirmed diclofenac sodium 50 mg 50 mg PO TID 03/31/24 03/31/24 tablet,delayed release Allergies Allergy/AdvReac Type Severity Reaction Status Date / Time No Known Allergies Allergy Verified 03/31/24 16:05 Review of Systems Review of Systems: All systems reviewed & are unremarkable except as noted in HPI and below PMFSH Past Medical History Medical History BMI 32.0-32.9,adult Depression Dyslipidemia Hypertension Left knee pain Reduced libido Surgical History Surgical History History of Social History Social History Smoking status: Former smoker Alcohol intake: current Substance use: never Lack of Transportation: No Lack of Food: Never True Current Housing: I Have Housing Concerned About Future Housing: No Difficulty Paying Gas/Electric Bills: YES Difficulty Paying for Meds: No Currently Unemployed: No Education: Grade School Difficulty w/ Childcare or Family Care: No Living arrangements: with family Gender identity (if verbalized by the patient): Female Exam Narrative: General appearance: Well-developed, well-nourished Skin: Normal color Head: Normocephalic, nontraumatic Eyes: Clear conjunctiva ENT: Oropharynx normal, ears normal, nose normal Neck: Supple, nontender Chest and respiratory: Airway patent, no respiratory distress, no accessory muscle use Heart: Regular rate/rhythm Abdomen: Soft, nontender, no organomegaly, quiet bowel sounds Vascular: Normal peripheral pulses, normal capillary refill. Musculoskeletal: Normal range of motion, nontender back Neurologic: Alert and oriented ?3, [employer] is normal as tested, no gross motor deficit Course Vital Signs Vital signs: Vital Signs Temperature 36.6 C 03/31/24 16:04 Pulse Rate 72 03/31/24 16:04 Respiratory Rate 16 03/31/24 16:04 Blood Pressure 205/111 H 03/31/24 16:04 Pulse Oximetry 98 03/31/24 16:04 Oxygen Delivery Room Air 03/31/24 16:04 Temperature 36.6 C 03/31/24 16:04 Pulse Rate 72 03/31/24 16:04 Respiratory Rate 16 03/31/24 16:04 Blood Pressure 168/105 H 03/31/24 16:17 Pulse Oximetry 98 03/31/24 16:04 Oxygen Delivery Room Air 03/31/24
[2024-03-31 16:17] VITALS: BP 168/105
[2024-03-31] MEDS: LORazepam (*CRX) 0.5 MG TABLET 1 MG PO (16:21)
[2024-03-31 16:36] VITALS: BP 153/117
[2024-03-31 16:48] VITALS: BP 152/92
[2024-03-31 17:02] VITALS: BP 152/92; PULSE 69; RESP 13; TEMP 36.6; O2SAT 97
== END 2024-03-31 17:02 | disposition home or self-care (01) ==
LOC: CHSED 16:50
PROVIDERS: Emergency Provider Emergency Medicine; PCP Nurse Practitioner Family
DX: F41.9 Anxiety disorder, unspecified (principal); I10 Essential (primary) hypertension; Z91.148 Patient's other noncompliance with medication regimen for other reason; E78.5 Hyperlipidemia, unspecified; Z87.891 Personal history of nicotine dependence
CPT/HCPCS: 99283; A9270

== ENCOUNTER 2024-04-05 16:21 | Outpatient (NON) | payer OTHER, SELFPAY | END 2024-04-05 16:22 | disposition home or self-care (01) | PROVIDERS: Visit Provider Nurse Practitioner Family | DX: Z11.51 Encounter for screening for human papillomavirus (HPV) (principal); Z11.8 Encounter for screening for other infectious and parasitic diseases; Z12.4 Encounter for screening for malignant neoplasm of cervix; Z11.3 Encounter for screening for infections with a predominantly sexual mode of transmission | CPT/HCPCS: 87491; 87591; 87624; 88175; G0145 ==

== ENCOUNTER 2024-04-08 11:35 | Emergency (ER) | payer OTHER, SELFPAY ==
--- NOTE | ~2024-04-08 | XR_ITS ---
EXAMINATION: XR chest 1V portable DATE: 04/08/2024 11:52 INDICATION: Shortness of breath. TECHNIQUE: A single frontal view of the chest was obtained. COMPARISON: Chest 2 views 11/06/2022 FINDINGS: There is no pneumonia, pleural effusion, or pneumothorax. The heart size is normal. IMPRESSION: 1. No acute cardiopulmonary disease. Reviewed, dictated and finalized at location A.
[2024-04-08 11:36] VITALS: BP 140/89; PULSE 79; RESP 20; TEMP 36.4; O2SAT 96
[2024-04-08 11:44] VITALS: O2SAT 98
--- NOTE | 2024-04-08 11:49 | PC.NURSE ---
Covid culture sent to lab
[2024-04-08 12:17] LABS: Strep Group A RT-PCR NOT DETECTED (Negative)
[2024-04-08 12:28] LABS: SARS-CoV-2 RNA PCR Negative (Negative)
[2024-04-08 12:29] LABS: Influenza A QL RT-PCR Negative (Negative); Influenza B QL RT-PCR Negative (Negative); RSV RNA, RT-PCR Negative (Negative)
--- NOTE | 2024-04-08 12:43 | ED.URI ---
HPI - URI/Sore Throat General Chief Complaint: Upper Respiratory Infection Stated Complaint: SOB Source: patient Mode of arrival: ambulatory Limitations: no limitations History of Present Illness HPI Narrative: this is 39-year-old female with no significant past medical history presents with a 2 day history of chest congestion with no fever chills no history of asthma no shortness of breath no wheezing no nausea vomiting no chest pain or shortness of breath. MD elicited complaint: sore throat and nasal congestion Onset (ago): day(s) Consistency: constant Severity: mild Description of mucous: clear Related Data Home Medications Medication Instructions Recorded Confirmed diclofenac sodium 50 mg 50 mg PO TID 03/31/24 04/05/24 tablet,delayed release Allergies Allergy/AdvReac Type Severity Reaction Status Date / Time No Known Allergies Allergy Verified 04/05/24 15:14 Review of Systems Review of Systems: All systems reviewed & are unremarkable except as noted in HPI and below PMFSH Past Medical History Medical History BMI 32.0-32.9,adult Depression Dyslipidemia Hypertension Left knee pain Reduced libido Surgical History Surgical History History of Social History Social History Smoking status: Former smoker Alcohol intake: current Substance use: never Lack of Transportation: No Lack of Food: Never True Current Housing: I Have Housing Concerned About Future Housing: No Difficulty Paying Gas/Electric Bills: YES Difficulty Paying for Meds: No Currently Unemployed: No Education: Grade School Difficulty w/ Childcare or Family Care: No Living arrangements: with family Gender identity (if verbalized by the patient): Female Exam Const: General: healthy appearing and no acute distress Nutritional Appearance: well nourished Orientation/consciousness: patient oriented x3 HENMT: Head: normal to inspection Eyes: Conjunctivae: conjunctivae normal Neck: Neck: normal visual inspection Chest: Chest palpation & inspection: normal inspection of the chest Resp: Effort & Inspection: normal respiratory effort Auscultation: clear to auscultation bilaterally Cardio: Rate: regular rate Rhythm: regular rhythm GI: GI Palp: Yes Soft to palpation Extrem: General: normal to inspection and no clubbing, cyanosis or edema Course Course Emergency Course: X-ray with lungs show no acute cardiopulmonary abnormalities COVID RSV influenza and strep negative and send antibiotics to patient's local pharmacy for an upper respiratory tract infection. Vital Signs Vital signs: Vital Signs Temperature 36.4 C 04/08/24 11:36 Pulse Rate 79 04/08/24 11:36 Respiratory Rate 20 04/08/24 11:36 Blood Pressure 140/89 04/08/24 11:36 Pulse Oximetry 96 04/08/24 11:36 Oxygen Delivery Room Air 04/08/24 11:36 Temperature 36.4 C 04/08/24 11:36 Pulse Rate 79 04/08/24 11:36 Respiratory Rate 20 04/08/24 11:36 Blood Pressure 140/89 04/08/24 11:36 Pulse Oximetry 98 04/08/24 11:44 Oxygen Delivery Room Air 04/08/24 11:44 MDM - URI/Sore Throat Lab Data Labs: Lab Results 04/08/24 Range/Units 11:49 Influenza A (RT-PCR) Negative (Negative) Influenza B (RT-PCR) Negative (Negative) RSV (RT-PCR) Negative (Negative) SARS-CoV-2 RNA (RT-PCR) Negative (Negative) Group A Strep (PCR) Not detected (Negative) Critical Care Time Critical Care Time Critical Care Time: No Discharge Plan Discharge Clinical Impression: Upper respiratory infection Patient Disposition: Home, Self-Care Condition: Stable Instructions: Antibiotic Form, Upper Respiratory Infection (ED) Additional Instructions: advised to take medication as prescribed and follow with primary within a week further evaluation and treatment. Prescriptions: New azithromycin [Zithromax Z-José Manuel] 250 mg tablet See Rx Instructions .ROUTE .COMPLEX Qty: 6 0RF Rx Instructions: For 250 mg dose pack: take 500 mg today (day 1), then 250 mg for 4 days (days 2-5) No Action diclofenac sodium 50 mg tablet,delayed release (DR/EC) 50 mg PO TID lisinopril 40 mg tablet 40 mg PO DAILY Qty: 90 3RF bupropion HCl 150 mg tablet extended release 24 hr See Rx Instructions .ROUTE .COMPLEX Qty: 90 0RF Dose Instruction: TAKE THREE TABLETS BY MOUTH DAILY Rx Instructions: TAKE THREE TABLETS BY MOUTH DAILY lisinopril 20 mg tablet See Rx Instructions .ROUTE .COMPLEX Qty: 90 0RF Dose Instruction: TAKE ONE TABLET BY MOUTH DAILY Rx Instructions: TAKE ONE TABLET BY MOUTH DAILY propranolol 20 mg tablet See Rx Instructions .ROUTE .COMPLEX Qty: 60 0RF Dose Instruction: TAKE ONE TABLET BY MOUTH EVERY TWELVE HOURS Rx Instructions: TAKE ONE TABLET BY MOUTH EVERY TWELVE HOURS atorvastatin 20 mg tablet See Rx Instructions .ROUTE .COMPLEX Qty: 90 0RF Dose Instruction: TAKE ONE TABLET BY MOUTH DAILY Rx Instructions: TAKE ONE TABLET BY MOUTH DAILY Follow-up/Referrals: Kathy Streeter NP [Primary Care Provider] - Time of Disposition: 12:46
[2024-04-08 12:54] VITALS: BP 128/78; PULSE 80; RESP 20; TEMP 36.7; O2SAT 98
== END 2024-04-08 13:02 | disposition home or self-care (01) ==
PROVIDERS: Emergency Provider Emergency Medicine; PCP Nurse Practitioner Family
DX: J06.9 Acute upper respiratory infection, unspecified (principal); I10 Essential (primary) hypertension; Z87.891 Personal history of nicotine dependence; Z20.822 Contact with and (suspected) exposure to COVID-19
CPT/HCPCS: 71045; 87637; 87651; 99283

== ENCOUNTER 2024-07-27 16:11 | Outpatient (CLI) | payer OTHER, SELFPAY ==
--- OUTSIDE RECORDS SUMMARY | 2024-07-27 16:14 | XMS_ITS | Clinical Summary ---
Author Organization [facility] Address [address] [place] [address] Phone Care Team Providers Care Vegetable I Farmworker Name Role Phone Mac Cardona MD Primary Care Provider [phone] Allergies No known active allergies Medications Vitamins (DIS) PO TABS Take by mouth. Active predniSONE (DELTASONE) 50 MG Tablet Take 1 Tab by mouth daily. 7 Tab 04/14/2017 Active triamcinolone (KENALOG) 0.1 % Cream Apply thin amount of cream to rash three times daily as needed for itching. Application Site: chest, back, legs, arms 45 g 04/14/2017 Active buPROPion (WELLBUTRIN) 300 MG TABLET SR 24 HR XL tablet Take 300 mg by mouth every morning. Active Active Problems Problem Noted Date Diagnosed Date Bee sting reaction 12/10/2020 Finger joint swelling, left 12/10/2020 Hives 04/14/2017 Emesis 12/07/2009 Immunizations Immunization Administration Dates Next Due RHO D IG FULL DOSE 300 MCG IM 11/23/2009 Social History Tobacco Use Types Packs/Day Years Used Date Smoking Tobacco: Former Cigarettes Q uit: 08/12/2009 Smokeless Tobacco: Never Comments: As soon as found o ut I was Alcohol Use Standard Drinks/Week Comments No 0 (1 standard drink = 0.6 oz pur e alcohol) occasional socially Comments No Sex and Gender Information Value Date Recorded Sex Assigned at Not on file Legal Sex 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 Gender Identity Not on file Sexual Orientation Not on file Last Filed Vital Signs Vital Sign Reading Time Taken Comments Blood Pressure 147/102 12/10/2020 2:48 PM CDT Pulse 90 12/10/2020 2:48 PM CDT Temperature 37.2 C (98.9 F) 12/10/2020 2:48 PM CDT Respiratory Rate 18 12/10/2020 2:48 PM CDT Oxygen Saturation 100% 12/10/2020 2:48 PM CDT Inhaled Oxygen Concentration - - Weight 68.5 kg (151 lb) 12/10/2020 2:48 PM CDT Height 157.5 cm (5' 2 ) 12/10/2020 2:48 PM CDT Body Mass Index 27.62 12/10/2020 2:48 PM CDT Plan of Treatment Health Maintenance Due Date Last Done Comments TdaP Immunization 1985 Hepatitis B Immunization (1 of 3 - 19+ 3-dose series) 2004 Pap Smear 10/16/2012 10/16/2009 Cervical Cancer Screening (CCS) 2015 HPV/Cotest 2015 Influenza Immunization (#1) 2024 SARS-COV-2 Immunization (2023- season) 2024 Respiratory Syncytial Virus (RSV) Immunization (Adult) (1 - 1-dose 75+ series) 2060 Hepatitis C Virus (HCV) Screening Completed 010 Meningococcal Immunization (ACWY) Aged Out No longer eligible based on patient's age to complete this topic Pneumococcal Immunization Combined Aged Out No longer eligible based on patient's age to complete this topic Rotavirus Immunization Aged Out No lo nger eligible based on patient's age to complete this topic Procedures Procedure Name Priority Date/Time Associated Diagnosis Comments PATHOLOGY CYTOLOGY LENS POLISHER HAND Routine 10/16/2009 11:22 PM CDT HEPATITIS C ANTIBODY Routine 09/26/2009 11:30 AM CDT from Last 3 Months or Most Recently Relevant to Health Maintenance Results * PATHOLOGY CYTOLOGY LENS POLISHER HAND (10/16/2009 11:22 PM CDT) 10/16/2009 11:2 2 PM CDT 10/16/2009 11:[address] [facility] - 10/22/2009 2:53 PM CDT CYTOPATHOLOGY REPORT: Patient Name: ASHANTI LAN Gender: F Location: [facility] Case #: [id number] Collect Date: 10/16/2009 Received: 10/16/2009 Reported: 10/22/2009 Final Cytologic Diagnosis: Vaginal/Cervical/Endocervical, liquid based thin layer preparation (Thin Prepe): Satisfactory for evaluation. Endocervical/transformation zone cellular component noted. NEGATIVE FOR INTRAEPITHELIAL LESIONS OR MALIGNANCY No dysplastic squamous cells identified. Fungal organisms present morphologically consistent with Marika species. Analysis of this sample has been assisted by an automated imaging and review system ([employer] System, [place], [place], [place]). The case is further evaluated and finalized by a filtration supervisor and/or pathologist. Electronically Signed Out By [id number] The PAP smear is a preliminary screening procedure designed to detect the presence of cancerous or precancerous cells of the cervix. It is the best means available for early detection of cervical cancer, but it is not perfect. False negative results will sometimes be reported. To reduce the possibility of a false negative result, an annual PAP smear is recommended. Moreover, any suspicious signs of possible symptoms of cancer should be followed up. us Susan Hernandez MD PATHOLOGY/CYTOLOGY ORDERABLES Final Result Performing Organization Address City/[facility] Co de Phone Number [facility] [address] [place] [address] * HEPATITIS C ANTIBODY (09/26/2009 11:30 AM CDT) hepatitis C antibody NON DETECTED NON DETECTED [facility] Comment:ANTIBODIES TO HCV NO T DETECTED: DOES NOT EXCLUDE EARLY ACUTE HCV INFECTION. 09/26/2009 11:3 0 AM CDT 09/26/2009 7:11 PM CDT us Madison Lomax MD CHEMISTRY ORDERABLES Final Resul t Performing Organization Address City/[facility] Co de Phone Number [facility] [address] [place] [address] from Last 3 Months or Most Recently Relevant to Health Maintenance Insurance MEDICARE MEDICAID [place] MEDICARE C WELLCARE Advance Directives * Full Code (Latest Code Status on File) Date Activated Date Inactivated Comments 12/07/2009 6:42 AM 12/07/2009 10:54 AM Care Teams Vegetable I Farmworker Relationship Specialty Start Date End Date Mac Cardona MD [address] [place] [address] PCP - General Family Medicine 04/12/17
[2024-07-27 17:24] LABS: HIV 1 P24 AG Negative (Negative); HIV 1/2 AB Negative (Negative)
[2024-07-28 14:48] LABS: RPR Screen NON-REACTIVE (NON-REACTIVE)
== END 2024-07-27 16:12 | disposition home or self-care (01) ==
PROVIDERS: PCP Nurse Practitioner Family; Visit Provider Nurse Practitioner Family
DX: Z20.2 Contact with and (suspected) exposure to infections with a predominantly sexual mode of transmission (principal)
CPT/HCPCS: 36415; 86592; 86695; 86696; 87806

== ENCOUNTER 2024-12-22 13:15 | Outpatient (NON) | payer OTHER, SELFPAY ==
--- OUTSIDE RECORDS SUMMARY | 2024-12-22 13:19 | XMS_ITS | Clinical Summary ---
Author Organization [facility] Address [address] [place] [address] Care Team Providers Care Supervisor Green End Department Name Role Phone Unavailable Primary Care Provider Unavailabl e Social History Tobacco Use Types Packs/Day Years Used Date Smoking Tobacco: Never Assessed Comments Unknown Sex and Gender Information Value Date Recorded Sex Assigned at Not on file Legal Sex Female 6:36 PM CDT Gender Identity Not on file Sexual Orientation Not on file Plan of Treatment Health Maintenance Due Date Last Done Comments Cervical Cancer Screening Pa p Smear (Age 30 to 64) Every 3 Years 1985 Annual Physical 1988 Hepatitis C 2003 DTaP, Tdap and Td Vaccines ( 1 - Tdap) 2004 Hepatitis B Vaccines (1 of 3 - 19+ 3-dose series) 2004 COVID-19 Vaccine (2023-2 5 season) 2024 Cervical Cancer Screening Pa p with HPV Testing (Age 30 to 64) Every 5 Years 04/05/2029 04/05/2024, 07/24/2021 Cervical Cancer Screening wi th HPV 04/05/2029 HPV Vaccines Aged Out No longer eligi ble based on patient's age to complete this topic Meningococcal B Vaccine Aged Out No l onger eligible based on patient's age to complete this topic Meningococcal Vaccine Aged Out No herminio yanique eligible based on patient's age to complete this topic Pneumococcal Vaccine: Pediatrics (0 to 5 Years) and At-Risk Patients (6 to 49 Years) Aged Out No longer eligible b ased on patient's age to complete this topic RSV Immunizations Under 20 Months Aged Out No longer eligible b ased on patient's age to complete this topic Procedures Procedure Name Priority Date/Time Associated Diagnosis Comments HUMAN PAPILLOMAVIRUS, HIGH-RISK TYPES Routine 04/05/2024 12:00 PM CDT from Last 3 Months or Most Recently Relevant to Health Maintenance Results * HUMAN PAPILLOMAVIRUS, HIGH-RISK TYPES (04/05/2024 12:00 PM CDT) SPEC DESCRIPTION CERVIX 04/12/20 7:58 AM CDT [facility] HPV DNA HIGH RISK NEGATIVE NEGATIVE 04/13/2024 12:01 AM CDT [facility] Comment:SEE CYTOLOGY REPORT 04/05/2024 12:0 0 PM CDT Kathy Streeter CUSTOMER SUCCESS MANAGER PATHOLOGY/CYTOLOGY ORDERA BLES Final Result [facility] [address] [place] [address], from Last 3 Months or Most Recently Relevant to Health Maintenance
--- OUTSIDE RECORDS SUMMARY | 2024-12-22 13:19 | XMS_ITS | Clinical Summary ---
Author Organization [facility] Address [address] [address] Phone Care Team Providers Care Daily Sales Audit Clerk Name Role Phone Mac Cardona MD Primary Care Provider [phone] Allergies No known active allergies Medications Vitamins [...] Cigarettes Q uit: 08/12/2009 Smokeless Tobacco: Never Comments:As soon as found o ut I was Alcohol Use Standard Drinks/Week Comments No 0 (1 standard drink = 0.6 oz pur e alcohol) occasional socially Comments No Sex and Gender Information Value Date Recorded Sex Assigned at Not on file 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 Gender Identity Not on file Sexual Orientation [...] 2:48 PM CDT Height 157.5 cm (5' 2) 12/10/2020 2:48 PM CDT Body Mass Index 27.62 12/10/2020 2:48 PM CDT Plan of Treatment Health Maintenance Due Date Last Done Comments TdaP Immunization 1985 Human Papillomavirus (HPV) Immunization (1 - 3-dose series) 2000 Hepatitis B Immunization (1 of 3 - 19+ 3-dose series) 2004 Pap Smear 10/16/2012 10/16/2009 Cervical Cancer Screening (CCS) 2015 HPV/Cotest 2015 SARS-COV-2 Immunization ( season) 2024 Influenza Immunization (#1) 2025 Respiratory Syncytial Virus (RSV) Immunization (Adult) (1 [...] Priority Date/Time Associated Diagnosis Comments PATHOLOGY CYTOLOGY CLIMATOLOGY PROFESSOR Routine 10/16/2009 11:22 PM CDT HEPATITIS C ANTIBODY Routine 09/26/2009 11:30 AM CDT from Last 3 Months or Most Recently Relevant to Health Maintenance Results * PATHOLOGY CYTOLOGY CLIMATOLOGY PROFESSOR (10/16/2009 11:22 PM CDT) 10/16/2009 11:2 2 PM CDT 10/16/2009 11:22 PM CDT Narrative [facility] - 10/22/2009 2:53 PM CDT CYTOPATHOLOGY REPORT: Patient Name: ASHANTI LAN Gender: F Location: [facility] Case #: [id number] Collect Date: 10/16/2009 Received: 10/16/2009 Reported: 10/22/2009 Final Cytologic Diagnosis: Vaginal/Cervical/Endocervical, liquid based thin layer preparation (Thin Prepe): Satisfactory for evaluation. Endocervical/transformation zone cellular component noted. NEGATIVE FOR INTRAEPITHELIAL LESIONS OR MALIGNANCY No dysplastic squamous cells identified. Fungal organisms present morphologically consistent with Marika species. Analysis of this sample has been assisted by an automated imaging and review system ([employer] System, [employer], [place], [place]). The case is further evaluated and finalized by a creative assistant and/or pathologist. Electronically Signed Out By [id number] The PAP smear is a preliminary screening [...] Susan Hernandez MD PATHOLOGY/CYTOLOGY ORDERABLES Final Result [facility] [address] [place] [address] * HEPATITIS C ANTIBODY (09/26/2009 11:30 AM CDT) hepatitis C antibody NON DETECTED NON DETECTED [facility] Comment:ANTIBODIES TO HCV NO T DETECTED: DOES NOT EXCLUDE EARLY ACUTE HCV INFECTION. 09/26/2009 11:3 0 AM CDT 09/26/2009 7:11 PM CDT us Madison Lomax MD CHEMISTRY ORDERABLES Final Resul t [facility] [address] [place] [address] from Last 3 Months or Most Recently Relevant to Health Maintenance Insurance [address] [place] [address] MEDICARE MEDICAID [place] MEDICARE C WELLCARE Advance Directives * Full Code (Latest Code Status on File) Date Activated Date Inactivated Comments 12/07/2009 6:42 AM 12/07/2009 10:54 AM Care Teams Daily Sales Audit Clerk Relationship Specialty Start Date End Date Mac Cardona MD [address] [place] [address] PCP - General Family Medicine 04/12/17
[2024-12-22 13:26] LABS: Add Urine Microscopic? NO; Appearance Urine Clear (Clear); Glucose Urine UA Negative (Negative); Leukocyte Esterase Ur Negative LEU/UL (Negative); Nitrate Urine Negative (Negative); Specific Grav Ur 1.020 (1.010-1.020)
== END 2024-12-22 13:16 | disposition home or self-care (01) ==
PROVIDERS: Visit Provider Nurse Practitioner Family
DX: Z87.898 Personal history of other specified conditions (principal)
CPT/HCPCS: 81003

== ENCOUNTER 2024-12-30 17:05 | Emergency (ER) | payer OTHER, SELFPAY ==
[2024-12-30] VITALS (9 sets, daily range): BP systolic 131–179; BP diastolic 84–118; PULSE 85–114; RESP 20; TEMP 36.7–37.2; O2SAT 96–99
--- OUTSIDE RECORDS SUMMARY | 2024-12-30 17:07 | XMS_ITS | Clinical Summary ---
Author Organization [facility] Address [address] [facility] [place] [address] Phone Care Team Providers Care Electrician Control Equipment Name Role Phone Mac Cardona MD Primary Care Provider [phone] Allergies No known active allergies Medications Vitamins [...] on file Legal Sex Female 3:20 AM RETORT FORKER Gender Identity Not on file Sexual Orientation [...] Priority Date/Time Associated Diagnosis Comments PATHOLOGY CYTOLOGY AUTOMOTIVE LIGHT MECHANIC Routine 10/16/2009 11:22 PM CDT HEPATITIS C ANTIBODY Routine 09/26/2009 11:30 AM CDT from Last 3 Months or Most Recently Relevant to Health Maintenance Results * PATHOLOGY CYTOLOGY AUTOMOTIVE LIGHT MECHANIC (10/16/2009 11:22 PM CDT) 10/16/2009 11:2 2 PM CDT 10/16/2009 11:22 PM CDT Narrative [facility] - 10/22/2009 2:53 PM CDT CYTOPATHOLOGY REPORT: Patient Name: ASHANTI LAN Gender: F Location: [facility] ([facility]) Case #: [id number] Collect Date: 10/16/2009 Received: 10/16/2009 Reported: 10/22/2009 Final Cytologic Diagnosis: Vaginal/Cervical/Endocervical, liquid based thin layer preparation (Thin Prepe): Satisfactory for evaluation. Endocervical/transformation zone cellular component noted. NEGATIVE FOR INTRAEPITHELIAL LESIONS OR MALIGNANCY No dysplastic squamous cells identified. Fungal organisms present morphologically consistent with Marika species. Analysis of this sample has been assisted by an automated imaging and review system ([employer] Imaging System, [employer], [place], [place]). The case is further evaluated and finalized by a is manager and/or pathologist. Electronically Signed Out By [id number] The PAP smear is a preliminary screening [...] Susan Hernandez MD PATHOLOGY/CYTOLOGY ORDERABLES Final Result [facility] [address] [place] [address] * HEPATITIS C ANTIBODY (09/26/2009 11:30 AM CDT) hepatitis C antibody NON DETECTED NON DETECTED [facility] Comment:ANTIBODIES TO HCV NO T DETECTED: DOES NOT EXCLUDE EARLY ACUTE HCV INFECTION. 09/26/2009 11:3 0 AM CDT 09/26/2009 7:11 PM CDT us Madison Lomax MD CHEMISTRY ORDERABLES Final Resul t [facility] [address] [place] [address] from Last 3 Months or Most Recently Relevant to Health Maintenance Insurance [address] [place] [address] MEDICARE MED[place]ID [place] MEDICARE C WELLCARE Advance Directives * Full Code (Latest Code Status on File) Date Activated Date Inactivated Comments 12/07/2009 6:42 AM 12/07/2009 10:54 AM Care Teams Electrician Control Equipment Relationship Specialty Start Date End Date Mac Cardona MD [address] [place] [address] PCP - General Family Medicine 04/12/17
--- OUTSIDE RECORDS SUMMARY | 2024-12-30 17:07 | XMS_ITS | Clinical Summary ---
Author Organization [facility] Address [address] [place] [address] Care Team Providers Care Inoculator Name Role Phone Unavailable Primary Care Provider [...] SPEC DESCRIPTION CERVIX 04/12/20 7:58 AM CDT [facility] HPV DNA HIGH RISK NEGATIVE NEGATIVE 04/13/2024 12:01 AM CDT [facility] Comment:SEE CYTOLOGY REPORT 04/05/2024 12:0 0 PM CDT Kathy Streeter BEEKEEPER FARMER PATHOLOGY/CYTOLOGY ORDERA BLES Final Result [facility] [address] [place] [address], from Last 3 Months or Most Recently Relevant to Health Maintenance
--- NOTE | 2024-12-30 17:16 | ED.DIZZY ---
HPI - Dizziness General Chief Complaint: Dizziness Stated Complaint: dizzy Time Seen by Provider: 12/30/24 17:12 Source: patient Mode of arrival: ambulatory Limitations: no limitations History of Present Illness HPI Narrative: 39 year old female presents to the Emergency Department complaining of feeling dizzy and blood pressure elevated. Patient states she checked her blood pressure at home and it was elevated. She has not taken her blood pressure medications today. She is not on any schedule and takes them just whenever. She states she became anxious and feeling shaky. She denies chest pain, shortness of breath, palpitations, nausea, vomiting, diarrhea. MD elicited complaint: dizziness and lightheadedness Onset (ago): minute(s) Exacerbating factors: nothing Relieving factors: nothing Associated symptoms: other (anxious and shaky) Related Data Allergies Allergy/AdvReac Type Severity Reaction Status Date / Time No Known Allergies Allergy Verified 12/30/24 17:07 Review of Systems Review of Systems: All systems reviewed & are unremarkable except as noted in HPI and below Constitutional: Constitutional: Reports as per HPI, Denies chills, Denies fever(s) and Denies weakness Eyes: Eyes: Reports as per HPI and Denies change in vision ENT: Reports system reviewed and no additional complaints, except as documented, Denies nasal congestion and Denies sore throat Cardiovascular: Cardiovascular: Reports as per HPI and Denies chest pain Respiratory: Respiratory: Reports as per HPI, Denies chest congestion, Denies cough and Denies dyspnea Gastrointestinal: Gastrointestinal: Reports as per HPI, Denies abdominal pain, Denies diarrhea, Denies nausea and Denies vomiting Genitourinary: Genitourinary: Reports no additional female genitourinary complaints, Denies nocturia, Denies dysuria and Denies flank pain Musculoskeletal: Musculoskeletal: Reports no additional musculoskeletal complaints and Denies back pain Integumentary/Breasts: Skin/Breast: Reports system reviewed and no additional complaints, except as docu and Denies rash Neurologic: Reports system reviewed and no additional complaints, except as documented, Denies confusion, Reports dizziness, Denies syncope, Denies headache(s), Denies focal weakness, Denies numbness and Denies weakness Psychiatric: Psychiatric: Reports no additional psychiatric complaints and Reports anxiety Endocrine: Endocrine: Reports no additional endocrine complaints Hematologic/Lymphatic: Hematologic/Lymphatic: Reports no additional hematologic/lymphatic complaints Allergic/Immunologic: Allergic/Immunologic: Reports no additional allergic/immunologic complaints [facility] Past Medical History Medical History Left knee pain Depression Dyslipidemia Reduced libido BMI 32.0-32.9,adult Hypertension Surgical History Surgical History History of Social History Social History Smoking status: Former smoker Alcohol intake: current Substance use: never Do You Feel Safe in your Home?: Yes Lack of Transportation: No Lack of Food: Never True Current Housing: I Have Housing Concerned About Future Housing: No Difficulty Paying Gas/Electric Bills: YES Difficulty Paying for Meds: No Currently Unemployed: No Education: Grade School Difficulty w/ Childcare or Family Care: No Living arrangements: with family Gender identity (if verbalized by the patient): Female Exam Const: General: healthy appearing, no acute distress and alert Nutritional Appearance: obese Orientation/consciousness: patient oriented x3 Limitations: no limitations Other: anxious HENMT: Head: normal to inspection Ears: TM's normal bilaterally Face/Nose/Sinus: Normal external nose present Face and sinus: normal facial exam Mouth: Yes Normal oral and palatal mucosa present Teeth and gingiva: dentition normal Throat: posterior oropharynx normal Eyes: Pupils: Equal, round and reactive pupils present EOM: EOMs intact bilaterally Direct Ophthalmoscopy: no photophobia Other: fundoscopic exam normal Neck: Neck: normal visual inspection and meningismus present Other: no JVD Chest: Chest palpation & inspection: normal inspection of the chest Resp: Effort & Inspection: normal respiratory effort Auscultation: clear to auscultation bilaterally Cardio: Rate: tachycardic Rhythm: regular rhythm Heart sounds: no murmurs GI: Inspection: non-distended : General: Yes bladder normal to palpation Back/Spine/Pelvis: Back: no CVA tenderness Skin: General skin exam: normal color Rashes: no rashes Wounds: no wounds Neuro: General: patient oriented x3, moves all extremities, no meningeal signs, no focal motor deficits and CN's II-XI intact bilaterally Cranial nerves: Yes Nystagmus not present Speech: normal speech Gait exam (Neuro): Normal gait present Extrem: General: normal to inspection and no clubbing, cyanosis or edema Psych: Affect: Anxious affect present Course Vital Signs Vital signs: Vital Signs Temperature 37.2 C 12/30/24 17:09 Pulse Rate 109 H 12/30/24 17:09 Respiratory Rate 20 12/30/24 17:09 Blood Pressure 167/109 H 12/30/24 17:09 Pulse Oximetry 99 12/30/24 17:09 Oxygen Delivery Room Air 12/30/24 17:09 Temperature 37.2 C 12/30/24 17:09 Pulse Rate 92 12/30/24 19:05 Respiratory Rate 20 12/30/24 19:05 Blood Pressure 141/94 H 12/30/24 19:05 Pulse Oximetry 98 12/30/24 19:05 Oxygen Delivery Room Air 12/30/24 19:05 MDM - Dizziness MDM Narrative Medical decision making narrative: 39 y/o female presents to the ED c/o elevated BP. Has not taken BP medications today. States feels dizzy and anxious. PE: anxious, BP elevated, no acute findings Orthostatics: [lay] 179/108 (107), [sit] 148/118 (96), [stand] 170/113 (113) CBC: H/H 12.9/39.3, Plt 269; wbc 9.9 with 71 S, 18 L, 7 M CMP: Na 133, K 5.1, Cl 100, CO2 28, Glc 105, BUN 9, Cr 0.7; LFT's AST 84, ALT 40 TNI: <0.012 EKG: ST, 106, NAC M.9 UA: unremarkable UPreg: negative UDS: negative Tx: patient allowed to take her own home medications [Propranolol 20 mg and Lisinopril 40 mg po] *reviewed and discussed results with patient. Advised LFT's mildly elevated. Could be from her Atorvastatin. Patient to f/u with PCP for monitoring and possible medication adjustment. Patient encouraged to take her BP medications on a regular basis and at set times. Patient voices understanding and agreement. Instructions Lab Data 12/30/24 17:31 12/30/24 17:31 Labs: Lab Results 12/30/24 12/30/24 12/30/24 Range/Units 17:17 17:30 17:31 WBC 9.9 (4.8-10.8) K/mm3 RBC 3.85 L (4.20-5.40) M/mm3 Hgb 12.9 (12.0-15.0) g/dL Hct 39.3 (35.0-49.0) % MCV 102.1 H (78.0-102.0) fL MCH 33.5 H (27.0-31.0) pg MCHC 32.8 (32-36) g/dL RDW 11.9 (11.6-14.4) % Plt Count 269 (150-420) K/mm3 MPV 9.8 (9.2-11.8) fl Immature Gran % (Auto) 0.4 H (0.0-0.0) % Neut % (Auto) 71.0 H (50.0-70.0) % Lymph % (Auto) 18.0 (18.0-42.0) % [place]och % (Auto) 7.5 (2.0-11.0) % Eos % (Auto) 2.2 (1.0-6.0) % Baso % (Auto) 0.9 (0.0-1.0) % Lymph # (Auto) 1.79 (1.10-4.50) K/mm3 [place] # (Auto) 0.74 (0.10-0.90) K/mm3 Eos # (Auto) 0.22 (0.02-0.50) K/mm3 Baso # (Auto) 0.09 (0.00-0.10) K/mm3 Abs Immat Gran (auto) 0.04 H (0.00-0.00) K/mm3 Absolute Neuts (auto) 7.04 (1.70-7.20) K/mm3 Absolute Nucleated RBC 0.00 (0.00-0.00) K/mm3 Nucleated RBC % 0.0 (0-0.0) % Sodium 133 L (137-145) mmol/L Potassium 5.1 H (3.4-5.0) mmol/L Chloride 100 (98-107) mmol/L Carbon Dioxide 28 (22-30) mmol/L Anion Gap 5 (4-12) mmol/L BUN 9 (7-17) mg/dL Creatinine 0.70 (0.7-1.0) mg/dL Estim Creat Clear Calc 88 ml/min Estimated GFR > 60 (59 - ) Glucose 105 (65-110) mg/dL Calculated Osmolality 274 L (285-295) mOsm/kg Calcium 9.5 (8.4-10.2) mg/dL Magnesium 1.9 (1.6-2.3) mg/dL Total Bilirubin 0.4 (0.2-1.3) mg/dL AST 84 H (14-36) U/L ALT 40 H (6-35) U/L Alkaline Phosphatase 64 (38-126) U/L Troponin I < 0.012 (0.000-0.034) ng/mL Total Protein 7.4 (6.3-8.2) g/dL Albumin 4.2 (3.5-5.1) g/dL Urine Color Light yellow (Yellow) Urine Appearance Clear (Clear) Urine pH 6.0 (5.0-8.0) Ur Specific [place] 1.025 H (1.010-1.020) Urine Protein Negative (Negative) Urine Glucose (UA) Negative (Negative) Urine Ketones Negative (Negative) Ur Blood (Man) Negative (Negative) Urine Nitrate Negative (Negative) Urine Bilirubin Negative (Negative) Urine Urobilinogen 0.2 (0.2-1.0) mg/dL Ur Leukocyte Esterase Negative (Negative) Urine Test Negative Urine Opiates Screen Negative (Negative) Urine Methadone Screen Negative (Negative) Ur Barbiturates Screen Negative (Negative) Ur Phencyclidine Scrn Negative (Negative) Ur Amphetamine Screen Negative (Negative) U Benzodiazepines Scrn Negative (Negative) Urine Cocaine Screen Negative (Negative) U Cannabinoids Screen Negative (Negative) Discharge Plan Discharge Clinical Impression: Elevated LFTs Hypertension Qualifiers: Hypertension type: unspecified Qualified Code(s): I10 - Essential (primary) hypertension Patient Disposition: Home Condition: Stable Instructions: Hypertension (ED), Dizziness (ED) Additional Instructions: Continue home medications. Take regularly as directed Keep diary of blood pressure readings for your Primary Care Provider to review Follow up Primary Care Provider Patient Language: Belarusian Prescriptions: No Action propranolol 20 mg tablet See Rx Instructions .ROUTE .COMPLEX Qty: 60 3RF Dose Instruction: TAKE ONE TABLET BY MOUTH EVERY TWELVE HOURS Rx Instructions: TAKE ONE TABLET BY MOUTH EVERY TWELVE HOURS lisinopril 40 mg tablet 40 mg PO DAILY Qty: 90 3RF omeprazole 40 mg capsule,delayed release(DR/EC) 40 mg PO DAILY Qty: 14 0RF mirabegron 8 mg/mL suspension,extended rel recon 32 mg PO Q24H Qty: 120 2RF metformin [Glucophage XR] 500 mg tablet extended release 24 hr 500 mg PO QPM Qty: 30 2RF atorvastatin 20 mg tablet See Rx Instructions .ROUTE .COMPLEX Qty: 90 0RF Dose Instruction: TAKE ONE TABLET BY MOUTH DAILY Rx Instructions: TAKE ONE TABLET BY MOUTH DAILY bupropion HCl 150 mg tablet extended release 24 hr See Rx Instructions .ROUTE .COMPLEX Qty: 90 0RF Dose Instruction: TAKE THREE TABLETS BY MOUTH DAILY Rx Instructions: TAKE THREE TABLETS BY MOUTH DAILY diclofenac sodium 50 mg tablet,delayed release (DR/EC) See Rx Instructions .ROUTE .COMPLEX Qty: 45 0RF Dose Instruction: TAKE ONE TABLET BY MOUTH THREE TIMES A DAY NEEDED FOR PAIN Rx Instructions: TAKE ONE TABLET BY MOUTH THREE TIMES A DAY NEEDED FOR PAIN Follow-up/Referrals: Kathy Streeter AUTOMATION ENGINEERING MANAGER [Primary Care Provider] - Time of Disposition: 19:14
--- NOTE | 2024-12-30 17:17 | ECG_ITS ---
Test Date: 2024-12-30 17:35:25 Measurements Intervals Mandan Rate: 106 P: 67 NH: 141 QRS: 75 QRSD: 92 T: 39 QT: 325 QTc: 431 Interpretive Statements SINUS TACHYCARDIA ABNORMAL RHYTHM ECG Compared to ECG 01/05/2024 16:18:29 Sinus rhythm no longer present Sinus arrhythmia no longer present Electronically Signed On 01-01-2025 10:42:37 CDT by Jasen Pool M.D.
[2024-12-30 17:37] LABS: Hematocrit 39.3 % (35.0-49.0); Hemoglobin 12.9 g/dL (12.0-15.0); Immature Granulocyte Percent A 0.4 % (0.0-0.0); Lymphocytes Absolute Auto 1.79 K/mm3 (1.10-4.50); Mean Corpuscular HGB Conc 32.8 g/dL (32-36); Mean Corpuscular Hemoglobin 33.5 pg (27.0-31.0); Mean Corpuscular Volume 102.1 fL (78.0-102.0); Nucleated Red Blood Cells Absolute Auto 0.00 K/mm3 (0.00-0.00); Nucleated Red Blood Cells Perc 0.0 % (0-0.0); Platelet Count Result 269 K/mm3 (150-420); Red Blood Count 3.85 M/mm3 (4.20-5.40); White Blood Count 9.9 K/mm3 (4.8-10.8)
[2024-12-30 17:48] LABS: Alanine Aminotransferase 40 U/L (6-35); Albumin Level 4.2 g/dL (3.5-5.1); Alkaline Phosphatase 64 U/L (38-126); Anion Gap 5 mmol/L (4-12); Aspartate Amino Transferase 84 U/L (14-36); Bilirubin,Total 0.4 mg/dL (0.2-1.3); Blood Urea Nitrogen 9 mg/dL (7-17); Calcium 9.5 mg/dL (8.4-10.2); Carbon Dioxide 28 mmol/L (22-30); Chloride 100 mmol/L (98-107); Estimated CRCL calculation 88 ml/min; Estimated Glomerular Filt Rate > 60; Glucose 105 mg/dL (65-110); Magnesium 1.9 mg/dL (1.6-2.3); Osmolality Calculated 274 mOsm/kg (285-295); Potassium 5.1 mmol/L (3.4-5.0); Sodium 133 mmol/L (137-145); Total Protein 7.4 g/dL (6.3-8.2)
[2024-12-30 17:49] LABS: Add Urine Microscopic? NO; Appearance Urine Clear (Clear); Glucose Urine UA Negative (Negative); Leukocyte Esterase Ur Negative (Negative); Nitrate Urine Negative (Negative); Specific Grav Ur 1.025 (1.010-1.020)
--- OUTSIDE RECORDS SUMMARY | 2024-12-30 17:49 | XMS_ITS | Clinical Summary ---
Author Organization [facility] Address [address] [place] [id number] Care Team Providers Care Fabrication Mig Welder Name Role Phone Unavailable Primary Care Provider [...] SPEC DESCRIPTION CERVIX 04/12/20 7:58 AM CDT [facility] HPV DNA HIGH RISK NEGATIVE NEGATIVE 04/13/2024 12:01 AM CDT [facility] Comment:SEE CYTOLOGY REPORT 04/05/2024 12:0 0 PM CDT Kathy Streeter QC CHEMIST PATHOLOGY/CYTOLOGY ORDERA BLES Final Result [facility] [address] [place] [address], from Last 3 Months or Most Recently Relevant to Health Maintenance
--- OUTSIDE RECORDS SUMMARY | 2024-12-30 17:49 | XMS_ITS | Clinical Summary ---
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 Gender Identity Not on file Sexual Orientation [...] Priority Date/Time Associated Diagnosis Comments PATHOLOGY CYTOLOGY HIGH SCHOOL HISTORY TEACHER Routine 10/16/2009 11:22 PM CDT HEPATITIS C ANTIBODY Routine 09/26/2009 11:30 AM CDT from Last 3 Months or Most Recently Relevant to Health Maintenance Results * PATHOLOGY CYTOLOGY HIGH SCHOOL HISTORY TEACHER (10/16/2009 11:22 PM CDT) 10/16/2009 11:2 2 PM CDT 10/16/2009 11:22 PM CDT Narrative [facility] - 10/22/2009 2:53 PM CDT CYTOPATHOLOGY REPORT: Patient Name: ASHANTI LAN Gender: F Location: [facility] Case #: [id number] Collect Date: 10/16/2009 Received: 10/16/2009 Reported: 10/22/2009 Final Cytologic Diagnosis: Vaginal/Cervical/Endocervical, liquid based thin layer preparation (Thin Prepe): Satisfactory for evaluation. Endocervical/transformation zone cellular component noted. NEGATIVE FOR INTRAEPITHELIAL LESIONS OR MALIGNANCY No dysplastic squamous cells identified. Fungal organisms present morphologically consistent with Marika species. Analysis of this sample has been assisted by an automated imaging and review system ([employer] System, [employer], Anita, [place]). The case is further evaluated and finalized by a b2b sales executive and/or pathologist. Electronically Signed Out By [id number] The PAP smear is a preliminary screening [...] Susan Hernandez MD PATHOLOGY/CYTOLOGY ORDERABLES Final Result [facility] [address] [place] [address] * HEPATITIS C ANTIBODY (09/26/2009 11:30 AM CDT) hepatitis C antibody NON DETECTED NON DETECTED [facility] Comment:ANTIBODIES TO HCV NO T DETECTED: DOES NOT EXCLUDE EARLY ACUTE HCV INFECTION. 09/26/2009 11:3 0 AM CDT 09/26/2009 7:11 PM CDT us Madison Lomax MD CHEMISTRY ORDERABLES Final Resul t [facility] [address] [place] [address] from Last 3 Months or Most Recently Relevant to Health Maintenance Insurance [address] [place] [address] MEDICARE MEDICAID [place] MEDICARE C [employer] Advance Directives * Full Code (Latest Code Status on File) Date Activated Date Inactivated Comments 12/07/2009 6:42 AM 12/07/2009 10:54 AM Care Teams Fur Blowing Machine Operator Relationship Specialty Start Date End Date Mac Cardona MD [address] [place] [address] PCP - General Family Medicine 04/12/17
[2024-12-30 17:52] LABS: Pregnancy On Board Control Positive
[2024-12-30 18:00] LABS: Troponin I < 0.012 ng/mL (0.000-0.034)
--- NOTE | 2024-12-30 18:01 | PC.NURSE ---
Dr Morrow had pt take their own B/P meds she had not taken them today and she wanted to her own meds
[2024-12-30 18:26] LABS: Cannabinoid Screen Urine Negative (Negative)
== END 2024-12-30 19:21 | disposition home or self-care (01) ==
PROVIDERS: Emergency Provider Emergency Medicine; PCP Nurse Practitioner Family
DX: R79.89 Other specified abnormal findings of blood chemistry (principal); I10 Essential (primary) hypertension; E78.5 Hyperlipidemia, unspecified; Z87.891 Personal history of nicotine dependence; Z79.899 Other long term (current) drug therapy
CPT/HCPCS: 36415; 80053; 80307; 81003; 81025; 83735; 84484; 85025; 93005; 99284